=== PATIENT | male | born 1960 | race Caucasian/White ===

== ENCOUNTER → 2018-01-01 | Outpatient (CLI) | payer OTHER ==
--- NOTE | 2018-01-01 17:15 | KCIC ---
Renal ultrasound dated 01/01/2018. No comparison available. CLINICAL INDICATION: Chronic kidney disease stage III. FINDINGS: Kidneys are somewhat echogenic. Right kidney measures 10.7 cm in length. Left kidney measures 11.0 cm in length. No hydronephrosis. No apparent renal mass or shadowing calculus. Urinary bladder is unremarkable. Bilateral ureteral jets are seen. IMPRESSION: 1. Findings consistent with medical renal disease. No hydronephrosis. Electronically signed by: Yan Temple MD (01/01/2018 5:11 PM) [facility]
== END | disposition home or self-care (01) ==
LOC: KCIC US 14:28
PROVIDERS: ATTEND Internal Medicine Nephrology
DX: N18.3 Chronic kidney disease, stage 3 (moderate) (principal)
CPT/HCPCS: 76770